=== PATIENT | female | born 2000 | race African-American/Black ===

== ENCOUNTER 2020-01-23 13:00 | Emergency (ER) | payer OTHER ==
[~2020-01-23] VITALS: Ht 167.6 cm; Wt 77.3 kg
[2020-01-23 17:24] VITALS: BP 118/54
== END 2020-01-23 17:43 | disposition home or self-care (01) ==
LOC: EMS 13:00
DX: F41.9 Anxiety disorder, unspecified (principal); Z20.828 Contact with and (suspected) exposure to other viral communicable diseases
CPT/HCPCS: 87426; 93005; 71045-TC